=== PATIENT | female | born 1990 | race Caucasian/White ===

== ENCOUNTER 2024-11-05 07:47 | Inpatient (IN) ==
[2024-11-05] MEDS ORDERED: LIDOCAINE 1% LOCAL 20 ML VIAL INFIL PRN (08:15)
[2024-11-05] MEDS ORDERED: OXYTOCIN 30 UNITS/NSS 30 UNITS/500 ML BAG IV PRN ×2 (08:15→23:17)
--- NOTE | 2024-11-05 09:20 | History & Physical Report ---
Date of Service November 05, 2024 Assessment & Plan (1) Supervision of normal first : Plan: 34 yo G1 at 40 2/7 wga presents for iol VSS Fetus cat 1 labor - 35cc sweet placed after verbal consent obtained, pt tolerated well. Will start pit GBS neg epidural prn Admission and Anticipated Discharge Date Admission Date: November 05, 2024 History of Present Illness Chief Complaint: IOL Primary Care Provider: Zoey Song, 34 yo G1 at 40 2/7 wga presents for post-dates IOL. 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 hx: G1 hx PCOS denies hx stis Allergies Allergy/AdvReac Type Severity Reaction Status Date / Time chlorhexidine Allergy rash Verified 11/02/24 15:04 Home Medications Medication Instructions Recorded Confirmed Type aspirin 81 mg chewable tablet 81 mg PO DAILY 08/27/24 11/05/24 History vits no.124-ferrous fum 1 tab PO DAILY 11/05/24 11/05/24 History 27 mg iron-folic acid 800 mcg tablet ( Vitamin) Patient History Medical History Varicella vaccination Pleuritic chest pain PCOS (polycystic ovarian syndrome) Surgical History [place] teeth extracted Hx of tonsillectomy Family History Grandfather (Maternal) Diabetes Hypertension Heart disease Grandmother (Maternal) Hypertension Grandmother (Paternal) Macular degeneration Cancer Mother Gestational diabetes Pre-diabetes Denies family history of Ovarian cancer Prostate cancer Myocardial infarction Breast cancer Colorectal cancer Social History (Updated 11/05/24 @ 07:53 by Yady Rosado, BALJEET) Smoking Status: Never smoker Do You Dip or Chew Tobacco: No; Hx Alcohol Use: No Hx Substance Use: No Preferred Language: Ukrainian Communication Ability: Effective Visual Impairment: No Limitations Hearing Ability: Normal Hazard Mitigation Officer Required: No Beliefs That Will Affect Care: None marital status: marital status details: Asa Chopra (31) [phone] Current Living Situation: Spouse Current Living Situation Comment: lives with spouse, no pets current occupational status: employed current occupation: [employer] How many Children do You have: 0 Other Information That Helps Us Care for You: No Feels Safe at Home: Yes Safety Concerns: Feels Safe At This Time Diet: regular Dental Care, Regularly: Yes Do you think of yourself as: straight/heterosexual Gender Identity: Female Assistive Devices: None Physical Exam Genitourinary: OB Exam Abdomen: + vertex and + estimated weight (7) Manual OB Exam: + cervical dilation 2 cm, + cervical effacement 50% and + station -2 OB Exam Monitor Tracing: + external FHT monitor used, + external u terine monitor used (irreg) and + category I (130/mod/+accel/-decel) Results & Data Vital Signs (Past 12 Hours) Vital Signs Temp Pulse Resp BP 11/05/24 08:06 98.2 F 79 20 138/86 Laboratory Results OB Labs: Blood Type A Positive 03/28/24 Antibody Screen NEGATIVE 03/28/24 Hgb 11.8 g/dl (12.0-16.0) L 08/08/24 Hct 35.0 % (37.0-47.0) L 08/08/24 MCV 86.7 fL (80.0-100.0) 03/28/24 Plt Count 289 K/uL (130-400) 03/28/24 Rubella IgG Antibody Immune (Immune) 03/28/24 RPR Nonreactive (Nonreactive) 08/08/23 Treponema pallidum Ab Negative (Negative) 08/08/24 Hep Bs Antigen Negative (Negative) 03/28/24 Hep Bs Antigen NON-REACTIVE (NON-REACTIVE) 08/08/23 Hepatitis C Antibody Negative (Negative) 03/28/24 Hepatitis C Ab (EIA) NON-REACTIVE (NON-REACTIVE) 08/08/23 HIV 1&2 Ab/P24 Ag 4thGn Negative (Negative) 03/28/24 HIV (1&2) Ag & Ab Conf NON-REACTIVE (NON-REACTIVE) 08/08/23 Glucose 1 Hr 50 gm 135 mg/dl (70-130) H 08/08/24 OB Optional Labs: Chlamydia trachomatis RNA Not Detected (NotDetected) 03/28/24 Neisseria gonorrhoeae RNA Not Detected (NotDetected) 03/28/24 Labs Reviewed: Declines genetics--mln gbs neg Diagnostic Findings post plac Coding Level of Care Code None Diagnoses Supervision of normal first Z34.00
[2024-11-05] MEDS: LACTATED RINGER'S 1,000 ML IV PRN (09:30)
[2024-11-05 09:31] LABS: Hematocrit (blood only) 33.8 % (37.0-47.0); Mean Corpuscular Hemoglobin 28.4 pg (25.0-34.0); Mean Corpuscular Hgb Conc 32.5 g/dL (32.0-36.0); Mean Corpuscular Volume 87.1 fL (80.0-100.0); Mean Platelet Volume 10.8 fL (9.4-12.4); Platelet Count 180 K/uL (130-400); RDW Coefficient of Variation 13.1 % (11.5-14.5); RDW Standard Deviation 40.6 fL (36.4-46.3); Red Blood Count 3.88 M/uL (4.20-5.40); White Blood Count 9.28 K/ul (4.8-10.8)
[2024-11-05] MEDS: OXYTOCIN 30 UNITS/NSS 30 UNITS/500 ML BAG IV PRN (09:38)
--- NOTE | 2024-11-05 16:18 | Labor Progress Brief Note ---
Date of Service November 05, 2024 Subjective Feeling ctx, manageable Assessment & Plan (1) Supervision of normal first : Plan: 34 yo G1 at 40 2/7 wga presents for iol VSS Fetus cat 1 labor - pit at 14, good progress. offered arom and pt agreeable, tolerated well. Continue induction GBS neg epidural prn Admission and Anticipated Discharge Date Admission Date: November 05, 2024 Physical Exam Genitourinary: Manual OB Exam: + cervical dilation 4 cm, + cervical effacement 50%, + station -2 and + amniotic fluid (arom clear) OB Exam Monitor Tracing: + external FHT monitor used, + external uterine monitor used (q2-3) and + category I (125/mod/+accel/-decel) Results & Data Vital Signs (Past 12 Hours) Vital Signs Temp Pulse Resp BP 11/05/24 16:01 78 129/87 11/05/24 16:00 98.1 F 20 11/05/24 15:18 83 130/84 11/05/24 14:54 97.9 F 11/05/24 14:21 80 20 127/87 11/05/24 13:24 79 130/83 11/05/24 12:48 98.4 F 11/05/24 12:00 73 16 130/83 11/05/24 11:00 81 131/82 11/05/24 10:44 82 123/86 11/05/24 10:30 77 122/85 11/05/24 10:14 80 20 136/72 11/05/24 09:59 79 125/78 11/05/24 09:24 80 136/89 11/05/24 08:06 98.2 F 79 20 138/86 Coding Level of Care Code None Diagnoses Supervision of normal first Z34.00
[2024-11-05] MEDS ORDERED: fentaNYL citrate PF 100 MCG/2 ML VIAL EPI PRN (17:48)
[2024-11-05] MEDS ORDERED: LIDOCAINE 2% MPF LOCAL 5 ML VIAL EPI PRN (17:48)
[2024-11-05] MEDS ORDERED: NALOXONE HCL 0.4 MG/1 ML VIAL/CARP IV PRN (17:48)
[2024-11-05] MEDS ORDERED: SODIUM CHLORIDE 0.9% PF INJ 10 ML VIAL EPI PRN (17:48)
[2024-11-05] MEDS ORDERED: LIDOCAINE 2%/EPINEPHRINE 1:200,000 20 ML PF EPI STA (17:48)
[2024-11-05] MEDS ORDERED: ROPIVACAINE 0.5% PF 5 MG/ML 20 ML VIAL EPI PRN (17:48)
[2024-11-05] MEDS ORDERED: BUPIVACAINE 0.25% PF 30 ML VIAL EPI STA (17:48)
[2024-11-05] MEDS ORDERED: diphenhydrAMINE 50 MG/ML VIAL IV PRN (17:48)
[2024-11-05] MEDS ORDERED: fentANYL 2 MCG/ML BUPIVacaine 0.125%-NSS 100ML BAG EPI PRN (17:48)
[2024-11-05] MEDS ORDERED: BUPIVACAINE 0.25% PF 30 ML VIAL EPI PRN (17:48)
[2024-11-05] MEDS ORDERED: NALOXONE HCL 1 MG in SODIUM CHLORIDE 0.9% 1,000 ML IV PRN (17:48)
[2024-11-05] MEDS ORDERED: NALBUPHINE HCL INJ 10 MG/ML AMP IV PRN (17:48)
[2024-11-05] MEDS ORDERED: SODIUM CHLORIDE 0.9% PF INJ 10 ML VIAL EPI STA (17:48)
[2024-11-05] MEDS ORDERED: ePHEDrine sulfate 50 MG/ML AMP IV PRN (17:48)
--- NOTE | 2024-11-05 17:51 | Anesthesiology Consultation ---
Date of Service November 05, 2024 Assessment & Plan Chart Review Chart Review: Patient NOT seen in Pre Admission Testing and Acceptable Risk for Labor Epidural Consults Requested none ASA ASA2 Proposed Anesthesia Anesthesia Type: Labor Epidural Risk / Benefits Reviewed With: PT / POA / Parent / Guardian, Accepts Plan and Informed Consent Obtained History Height/Weight Height: 5 ft 7 in Weight: 78.471 kg Allergies Allergy/AdvReac Type Severity Reaction Status Date / Time chlorhexidine Allergy rash Verified 11/02/24 15:04 Medications Home Medications Medication Instructions Recorded Confirmed Last Taken aspirin 81 mg chewable tablet 81 mg PO DAILY 08/27/24 11/05/24 11/05/24 06:00 vits no.124-ferrous fum 1 tab PO DAILY 11/05/24 11/05/24 11/05/24 06:30 27 mg iron-folic acid 800 mcg tablet ( Vitamin) Active Medications Generic Name Dose Route Start Last Admin Trade Name Freq PRN Reason Stop Dose Admin Lactated Ringer's 1,000 mls @ 125 mls/hr 11/05/24 08:15 11/05/24 17:20 Lr IV 11/06/24 08:14 999 mls/hr .Q8H PRN Infusion L&D Protocol Protocol Oxytocin 30 units in 500 mls @ 14 mls/hr 11/05/24 08:15 11/05/24 13:44 Pitocin 30 Units/Nss IV 11/07/24 08:14 0.84 units/hr .Q24H PRN 14 mls/hr Labor Induction/Augmentation Titration Protocol 0.84 UNITS/HR NPO Date Last Intake of Fluids: 11/05/24 Time Last Intake of Fluids: 17:30 Date Last Intake of Solids: 11/05/24 Time Last Intake of Solids: 07:30 Past Medical History Medical History Varicella vaccination Pleuritic chest pain PCOS (polycystic ovarian syndrome) Exercise / Class Metabolic Activity 1 > 8 Run/Swim/Ski/Tennis Past Family History Family History Grandfather (Maternal) Diabetes Hypertension Heart disease Grandmother (Maternal) Hypertension Grandmother (Paternal) Macular degeneration Cancer esophageal Mother Gestational diabetes Pre-diabetes Denies family history of Ovarian cancer Prostate cancer Myocardial infarction Breast cancer Colorectal cancer Past Surgical History Surgical History [place] teeth extracted Hx of tonsillectomy Past Anesthesia History No Hx of Anesthesia Complications and No Family Hx of Anesthesia Complications History of PONV No Hx of PONV and No Hx of Motion Sickness Social History Smoking Status: Never smoker Do You Dip or Chew Tobacco: No Hx Alcohol Use: No Hx Substance Use: No substance use type: does not use Review of Systems ROS Unobtainable: All systems reviewed & are unremarkable except as noted in HPI & below Physical Exam Vital Signs Last Vital Signs Temp 36.7 C 11/05/24 16:00 Pulse 85 11/05/24 17:01 Resp 20 11/05/24 16:00 BP 122/81 11/05/24 17:01 ENMT Mouth: no TMJ abnormality Thyromental Distance: > or= 3.5 Finger Breadths Mallampati Class: II Neck normal visual inspection and trachea midline; neck extension not limited Respiratory normal respiratory effort Auscultation: lungs clear to auscultation bilaterally Cardiovascular Rate/Rhythm: regular rate and regular rhythm Heart Sounds: no murmur Musculoskeletal Spine: normal cervical ROM Extremities: full ROM of extremities Neurologic moves all extremities Psychiatric Orientation: alert and oriented x 3 Testing Laboratory Results 11/05/24 08:44
[2024-11-05] MEDS: fentANYL 2 MCG/ML BUPIVacaine 0.125%-NSS 100ML BAG ONE (18:09)
[2024-11-05] MEDS: fentaNYL citrate PF 100 MCG/2 ML VIAL ONE (18:11)
[2024-11-05] MEDS: BUPIVACAINE 0.25% PF 30 ML VIAL ONE (18:11)
[2024-11-05] MEDS: LIDOCAINE 2%/EPINEPHRINE 1:200,000 20 ML PF ONE (18:12)
[2024-11-05] MEDS: SODIUM CHLORIDE 0.9% PF INJ 10 ML VIAL ONE (18:12)
[2024-11-05] MEDS: fentaNYL citrate PF 100 MCG/2 ML VIAL EPI STA (18:17)
[2024-11-05] MEDS: ePHEDrine sulfate 50 MG/ML AMP ONE (18:44)
--- NOTE | 2024-11-05 23:15 | Delivery Summary ---
Vaginal Delivery Summary Date of Service November 05, 2024 Vaginal Delivery Summary [facility] PREOPERATIVE DIAGNOSIS: 1. Single intrauterine at 40 2/7 wga 2. Post-dates IOL POSTOPERATIVE DIAGNOSIS: 1. Single intrauterine at 40 2/7 wga 2. Post-dates IOL 3. Delivered PROCEDURE: 1. Normal spontaneous vaginal delivery. SURGEON: Babs Acosta MD ANESTHESIA: Epidural. QUANTITATIVE BLOOD LOSS: 200 mL FLUIDS: Continuous LR. URINE OUTPUT: None. COMPLICATIONS: None. CONDITION: Stable. INDICATIONS: 34 yo G1 at 40 2/7 wga presented for IOL. Induction was begun with sweet bulb and pitocin. Following bulb expulsion, she underwent arom. She received an epidural and progressed to complete and desired to push FINDINGS: A viable male infant, weight pending with Apgars of 6 and 9 at 1 and 5 minutes respectively. SPECIMEN: Cord blood OPERATIVE REPORT: The patient progressed to 10 cm, 100% effaced and +2 station, pushed over intact perineum with anesthesia to deliver a viable male infant, weight and Apgars as above. Head of delivered in ANI position. Nuchal cord was reduced. Body and shoulders were delivered without difficulty with body and leg cord as well. Delayed cord clamping was deferred due to not being immediately vigorous. Cord was clamped and cut and baby handed to nursery staff. Cord blood was obtained. Placenta delivered spontaneously intact with 3- vessel cord. IV oxytocin and fundal massage were given for excellent hemostasis. Vagina, cervix, perineum, and placenta were inspected. No lacerations were noted. Sponge and needle counts correct x2. No sponges were left behind. Mother and stable in immediate period. [facility] V[facility]inal Delivery Charge Vaginal Delivery Codes: 55478 global code for the antepartum, delivery, and post- Delivery Type Details: [facility]
[2024-11-05] MEDS ORDERED: HYDROCORTISONE ACETATE 25 MG SUPP PR PRN (23:17)
[2024-11-05] MEDS ORDERED: ACETAMINOPHEN 325 MG TAB PO PRN (23:17)
[2024-11-05] MEDS ORDERED: bisacodyL 10 MG SUPP PR PRN (23:17)
[2024-11-06] MEDS: BENZOCAINE 20% SPRY 85 APPLN/85 GM CAN EXT PRN (00:58)
--- NOTE | 2024-11-06 07:38 | Obstetrical Progress Note ---
Date of Service November 06, 2024 Assessment & Plan (1) Encounter for care and examination after delivery: 34 yo PP1 from , doing well -Meeting all pp milestones -O+/rubella immune/ -f/u 6 weeks for appt, continue routine care Subjective Ambulation: ambulating normally Voiding: no voiding problems Passing Gas:: Yes Diet Tolerance:: regular diet Lochia:: Small Feeding Type:: breast feeding Pain well managed with medication Review of Systems Denies fevers, chills, n/v, HAND, CP, SOB Physical Exam Constitutional WD/WN, vitals as above no acute distress Respiratory normal respiratory effort, lungs clear to auscultation Cardiovascular RRR, no murmur, no edema Gastrointestinal (Abdomen) Percussion/Palpation: abdomen soft; abdomen nontender fundus firm at umbilicus and NT Musculoskeletal BLE symmetric, nonerythematous, nontender Results & Data Vital Signs (Past 12 Hours) Vital Signs Temp Pulse Pulse Resp BP BP Pulse Ox 11/06/24 03:40 98.2 F 80 16 131/85 98 11/06/24 01:15 98.2 F 96 H 18 130/80 97 11/06/24 00:45 92 H 116/72 11/06/24 00:30 94 H 124/73 11/06/24 00:15 115 H 128/81 11/06/24 00:00 97 H 129/81 11/05/24 23:45 96 H 126/77 11/05/24 23:30 103 H 132/79 11/05/24 23:28 117 H 128/82 11/05/24 23:15 106 H 123/74 11/05/24 23:03 106 H 122/74 11/05/24 22:30 101 H 128/65 11/05/24 22:27 113 H 99 11/05/24 22:22 109 H 100 11/05/24 22:17 109 H 99 11/05/24 22:15 113 H 133/62 11/05/24 22:12 117 H 99 11/05/24 22:10 117 H 87 L 11/05/24 22:07 99 H 99 11/05/24 22:02 127 H 100 11/05/24 22:00 114 H 128/62 11/05/24 21:58 111 H 92 11/05/24 21:57 130 H 97 11/05/24 21:53 115 H 90 11/05/24 21:52 141 H 99 11/05/24 21:47 111 H 99 11/05/24 21:42 106 H 99 11/05/24 21:41 18 11/05/24 21:41 99.7 F H 18 11/05/24 21:37 97 H 99 11/05/24 21:32 134 H 99 11/05/24 21:31 120 H 88 L 11/05/24 21:27 96 H 99 11/05/24 21:26 93 H 91 11/05/24 21:22 105 H 98 11/05/24 21:17 112 H 99 11/05/24 21:15 93 H 123/62 11/05/24 21:12 93 H 99 11/05/24 21:07 90 99 11/05/24 21:02 99 11/05/24 21:02 89 11/05/24 21:02 83 119/58 L 11/05/24 20:57 89 100 11/05/24 20:52 89 100 11/05/24 20:47 88 99 11/05/24 20:45 90 117/61 11/05/24 20:42 86 99 11/05/24 20:37 93 H 99 11/05/24 20:32 86 100 11/05/24 20:31 84 116/56 L 11/05/24 20:27 100 H 99 11/05/24 20:22 92 H 100 11/05/24 20:17 96 H 100 11/05/24 20:12 111 H 100 11/05/24 20:07 89 100 11/05/24 20:02 100 11/05/24 20:02 94 H 11/05/24 20:02 85 113/56 L 11/05/24 19:57 88 98 11/05/24 19:52 90 100 11/05/24 19:47 85 99 11/05/24 19:46 81 107/56 L 11/05/24 19:42 90 99 11/05/24 19:37 113 H 99 O2 Del Method 11/06/24 03:40 Room Air 11/06/24 01:15 Room Air 11/06/24 00:45 11/06/24 00:30 11/06/24 00:15 11/06/24 00:00 11/05/24 23:45 11/05/24 23:30 11/05/24 23:28 11/05/24 23:15 11/05/24 23:03 11/05/24 22:30 11/05/24 22:27 11/05/24 22:22 11/05/24 22:17 11/05/24 22:15 11/05/24 22:12 11/05/24 22:10 11/05/24 22:07 11/05/24 22:02 11/05/24 22:00 11/05/24 21:58 11/05/24 21:57 11/05/24 21:53 11/05/24 21:52 11/05/24 21:47 11/05/24 21:42 11/05/24 21:41 11/05/24 21:41 11/05/24 21:37 11/05/24 21:32 11/05/24 21:31 11/05/24 21:27 11/05/24 21:26 11/05/24 21:22 11/05/24 21:17 11/05/24 21:15 11/05/24 21:12 11/05/24 21:07 11/05/24 21:02 11/05/24 21:02 11/05/24 21:02 11/05/24 20:57 11/05/24 20:52 11/05/24 20:47 11/05/24 20:45 11/05/24 20:42 11/05/24 20:37 11/05/24 20:32 11/05/24 20:31 11/05/24 20:27 11/05/24 20:22 11/05/24 20:17 11/05/24 20:12 11/05/24 20:07 11/05/24 20:02 11/05/24 20:02 11/05/24 20:02 11/05/24 19:57 11/05/24 19:52 11/05/24 19:47 11/05/24 19:46 11/05/24 19:42 11/05/24 19:37
[2024-11-06] MEDS: IBUPROFEN 600 MG TAB PO PRN (07:55)
[2024-11-06] MEDS: PRENATAL VITAMIN 1 TAB PO SCH (07:55)
[2024-11-06] MEDS: DOCUSATE SODIUM 100 MG CAP PO SCH (07:55)
[2024-11-06 08:56] VITALS: O2SAT 99
--- NOTE | 2024-11-06 10:55 | Anesthesia Procedure Note ---
Date of Service November 06, 2024 Anesthesia Post Epidural Note Vital Signs Vital Signs: Temp Pulse Resp BP Pulse Ox O2 Del Method 36.8 C 81 16 128/78 99 Room Air 11/06/24 07:40 11/06/24 07:40 11/06/24 07:40 11/06/24 07:40 11/06/24 07:40 11/06/24 07:40 Pain Intensity Abdomen: Pain Intensity: 1 Notes Mental Status: alert / awake / arousable Nausea / Vomiting: adequately controlled Pain: adequately controlled Airway Patency, RR, SpO2: stable & adequate BP & HR: stable & adequate Hydration State: stable & adequate Neuraxial Anesthesia: was administered and sensory block is resolving Anesthetic Complications: no major complications apparent and Pt Satisfied with anesthetic care Epidural: Removed without complications and With tip intact
[2024-11-06] MEDS: DIPHTHER/TETAN/PERTUS Vaccine (Tdap, Adol/Adult) 0.5mL IM ONE (19:11)
[2024-11-06] MEDS: bisacodyL 5 MG TABEC PO SCH (20:27)
[2024-11-06 21:04] VITALS: RESP 18
--- NOTE | 2024-11-07 07:13 | Obstetrical Progress Note ---
Date of Service November 07, 2024 Assessment & Plan (1) Encounter for care and examination after delivery: Day 2 status post vaginal delivery. Patient doing well and stable for discharge Subjective Ambulation: ambulating normally Voiding: no voiding problems Passing Gas:: Yes Diet Tolerance:: regular diet Lochia:: Small Physical Exam Constitutional WD/WN, vitals as above Respiratory normal respiratory effort; no respiratory distress and no labored breathing Cardiovascular Extremities: no calf tenderness Gastrointestinal (Abdomen) Inspection/Auscultation: abdomen normal to inspection; abdomen not distended Percussion/Palpation: abdomen soft; abdomen nontender, no guarding and abdomen not rigid Genitourinary OB Exam Abdomen: + fundal height Fundus: + firm and + relation to umbilicus (Below); not tender or not boggy Results & Data Vital Signs (Past 12 Hours) Vital Signs Temp Pulse Resp BP 11/06/24 23:30 36.7 C 89 18 120/75 11/06/24 20:20 37.0 C 84 18 109/69
[2024-11-07 11:09] VITALS: BP 113/80; TEMP 98.2
[2024-11-07 11:32] VITALS: PULSE 82
== END 2024-11-07 13:30 | disposition home or self-care (01) | DRG 807 ==
LOC: 4S1 07:47 → 4E2 11-06 01:15
DX: Z79.82 Long term (current) use of aspirin; Z3A.40 40 weeks gestation of pregnancy; O69.81X0 Labor and delivery complicated by cord around neck, without compression, not applicable or unspecified; Z37.0 Single live birth; O48.0 Post-term pregnancy; Z88.8 Allergy status to other drugs, medicaments and biological substances